=== PATIENT | female | born 1995 | race Caucasian/White ===

== ENCOUNTER 2017-01-13 11:14 | Emergency (ER) | payer BC, OTHER ==
[~2017-01-13] VITALS: Ht 160 cm; Wt 86.2 kg
[2017-01-13 11:19] VITALS: BP 132/81
[2017-01-13] MEDS ORDERED: ONDANSETRON TAB 4MG ODT (11:23)
[2017-01-13] MEDS ORDERED: ATROPINE (11:23)
[2017-01-13] MEDS ORDERED: DICYCLOMINE 10 MG CAPSULE (11:23)
[2017-01-13] MEDS ORDERED: DIPHENOXYLATE (11:23)
[2017-01-13] MEDS ORDERED: METRONIDAZOLE 250 MG TABLET (11:23)
[2017-01-13] MEDS ORDERED: CIPROFLOXACIN HCL 250 MG TAB (11:23)
--- NOTE | 2017-01-13 11:44 | NUR ---
WATER GIVEN TO PT LOBBY.
--- NOTE | 2017-01-13 11:45 | NUR ---
Patient ambulated to bed 12.
--- NOTE | 2017-01-13 11:56 | NUR ---
21/F BIB AUNT C/O ACUTE TIGHT CHEST PAIN X1HR AGO. -HX GI INFECTION, RX 2 ATB UNKNOWN NAME AND ZOFRAN. PT POOR HISTORIAN. -AX NONE; DENIES V/D; SKIN IS PINK/WARM/DRY; AAOX4 WITH EVEN AND STEADY GAIT; LUNGS CLEAR BL; HR EVEN AND REGULAR; PT DENIES ANY FEVER, SOB, OR COUGH AT THIS TIME; PATIENT STATES PAIN OF 10/10 AT THIS TIME; VSS; PATIENT POSITIONED FOR COMFORT; HOB ELEVATED; BEDRAILS UP X2; BED DOWN. ER MD MADE AWARE OF PT STATUS.
--- NOTE | 2017-01-13 12:46 | NUR ---
Dr. Palomino evaluating patient at bedside.
[2017-01-13] MEDS ORDERED: DICYCLOMINE HCL LIQUID 20 MG, ALUMINUM HYD/MAG/SIMETHICONE 30 ML, LIDOCAINE VISCOUS 2% ... PO ONE ×3 (12:55)
[2017-01-13 13:24] VITALS: BP 124/88
--- NOTE | 2017-01-13 13:24 | NUR ---
Patient discharged with v/s stable. Written and verbal after care instructions given and explained. Patient alert, oriented and verbalized understanding of instructions. Ambulatory with steady gait. All questions addressed prior to discharge. ID band removed. Patient advised to follow up with PMD. Rx of ATARAX, PRILOSEC given. Patient educated on indication of medication including possible reaction and side effects. Opportunity to ask questions provided and answered.
== END 2017-01-13 13:24 | disposition home or self-care (01) ==
LOC: MED 11:14
DX: R07.9 Chest pain, unspecified (principal); R10.9 Unspecified abdominal pain; F41.9 Anxiety disorder, unspecified; F12.10 Cannabis abuse, uncomplicated
CPT/HCPCS: 81002; 81025; 93005; 99283

== ENCOUNTER 2018-04-12 11:05 | Emergency (ER) | payer BC, OTHER ==
[~2018-04-12] VITALS: Ht 160 cm; Wt 83.5 kg
[~2018-04-12 11:05] MED LIST: ATROPINE; CIPROFLOXACIN HCL 250 MG TAB; DICYCLOMINE 10 MG CAPSULE; DIPHENOXYLATE; METRONIDAZOLE 250 MG TABLET; ONDANSETRON TAB 4MG ODT
[2018-04-12 11:16] VITALS: BP 125/72
--- NOTE | 2018-04-12 11:33 | NUR ---
BIB SELF FOR DOG BITE ON LEFT MIDDLE FINGER 2 DAYS AGO. STATES THROBBING 7/10 PAIN. DENIES N/V/D; SKIN IS PINK/WARM/DRY; AAOX4 WITH EVEN AND STEADY GAIT; LUNGS CLEAR BL; HR EVEN AND REGULAR; PT DENIES ANY FEVER, CP, SOB, OR COUGH AT THIS TIME; VSS; PATIENT POSITIONED FOR COMFORT; HOB ELEVATED; BEDRAILS UP X2; BED DOWN. ER MD MADE AWARE OF PT STATUS.
--- NOTE | 2018-04-12 11:34 | NUR ---
DR FRASER AT BEDSIDE.
--- NOTE | 2018-04-12 11:40 | NUR ---
PATIENT REFUESED DOG BITE FORMS, STATES SHE ALREADY HAS A CASE WITH THE POLICE AND DOES NOT NEED TO REREPORT THE BITE.
[2018-04-12 11:42] VITALS: BP 125/72
--- NOTE | 2018-04-12 11:42 | NUR ---
Patient discharged with v/s stable. Written and verbal after care instructions given and explained. Patient alert, oriented and verbalized understanding of instructions. Ambulatory with steady gait. All questions addressed prior to discharge. ID band removed. Patient advised to follow up with PMD. Rx of AUGMENTIN, MOTRIN, NORCO given. Patient educated on indication of medication including possible reaction and side effects. Opportunity to ask questions provided and answered.
== END 2018-04-12 11:42 | disposition home or self-care (01) ==
LOC: MED 11:05
DX: S61.253A Open bite of left middle finger without damage to nail, initial encounter (principal); L03.114 Cellulitis of left upper limb; Z91.018 Allergy to other foods; Z79.2 Long term (current) use of antibiotics; Z79.899 Other long term (current) drug therapy; W54.0XXA Bitten by dog, initial encounter; Y93.89 Activity, other specified; Y92.89 Other specified places as the place of occurrence of the external cause; Y99.8 Other external cause status
CPT/HCPCS: 99283